=== PATIENT | female | born 1985 | race Caucasian/White ===

== ENCOUNTER → 2020-12-31 08:57 | Outpatient (CLI) | payer OTHER, MEDICAID, SELFPAY ==
--- NOTE | 2020-12-31 08:58 | DI.US.S_ITS ---
PROCEDURE: US OB >= 14 WEEKS FETUS INDICATIONS: ANATOMY OUTSIDE/PRIOR DATING DATA: Last menstrual period (LMP): 08/19/20 . LMP-based estimated date of delivery ([place]): 05/26/21 . First dating scan (date and location): 10/12/20 . Estimated date of delivery ([place]) from first dating scan: 05/28/21 . TECHNIQUE: Real-time scanning was performed of the fetus, with image documentation and biometric measurements. Endovaginal scanning: Not performed COMPARISON: [facility], , OB <= 14 WEEKS FETUS, 10/12/2020, 12:16. FINDINGS: General: A single living intrauterine gestation is present. Presentation: Breech. Placenta: Placental position is posterior , without previa. There is marginal placental cord insertion approximately 0.3 cm from the placental edge. Amniotic fluid index: 11.0 cm, normal range is 5-24 cm. Largest pocket 3.9 cm. heart rate: 143 beats per minute. Maternal cervical canal: 3.8 cm long. Normal lower limit is 2.5 cm. biometrics: Biparietal diameter: 4.0 cm, 18 weeks 2 days Head circumference: 16.1 cm, 18 weeks 6 days Abdominal circumference: 13.8 cm, 19 weeks 1 day Femur length: 2.8 cm, 18 weeks 4 days Estimated gestational age from initial scan: 18 weeks 6 days Composite gestational age from present scan: 18 weeks 5 days Estimated weight and percentile: 263 g, 48th percentile Measurement variability for biometric dating: +/- 7 days from 14 weeks to 15 weeks 6 days gestation, +/- 10 days from 16 weeks to 21 weeks 6 days gestation, +/- 2 weeks from 22 weeks to 27 weeks 6 days gestation, +/- 3 weeks for 28 weeks gestation or later. weight reference: 4500 g or EFW >90/95% is considered macrosomia or large for gestational age. EFW <10% is small for gestational age. EFW 5% or less is considered intra-uterine growth restriction. Anatomic survey: Neuro: Ventricles are non-dilated at less than 10 mm. Cisterna magna is normal at 3-11 mm. Cerebellum is normal in size and morphology. Nuchal skin fold: Normal at less than 6 mm between 14-21 weeks gestational age. Face: Nose and lips, facial profile are normal. Spine: No evidence for spina bifida. Heart: 4-chambered heart is present, with normal ventricular outflow tracts. Diaphragm: Diaphragm is intact. Stomach: Left-sided stomach is present. Kidneys: No hydronephrosis. Normal is less than 5 mm in 2nd trimester, less than 7 mm in 3rd trimester. Cord: 3-vessel cord has orthotopic insertion. Bladder: Normal in size. Extremities: All 4 extremities identified. IMPRESSION: Single living intrauterine fetus in breech presentation. Expected interval growth Marginal placental cord insertion (3 mm from the edge). Otherwise, normal anatomic survey Dictated by: Javi Hernandez M.D. on 12/31/2020 at 10:43 Approved by: Javi Hernandez M.D. on 12/31/2020 at 11:01
== END ==
PROVIDERS: Family Provider Midwife; PCP Midwife; Referring Provider Midwife; Visit Provider Midwife
DX: Z34.82 Encounter for supervision of other normal pregnancy, second trimester (principal); Z3A.18 18 weeks gestation of pregnancy
CPT/HCPCS: 76811